=== PATIENT | female | born 1955 | race Caucasian/White ===

== ENCOUNTER 2017-10-13 12:18 | Emergency (ER) | payer MEDICAID, OTHER ==
[~2017-10-13] VITALS: Ht 167.6 cm; Wt 100.0 kg
[2017-10-13 13:37] VITALS: BP 138/86
[2017-10-13] MEDS ORDERED: KEN0.1O TP (14:49)
[2017-10-13] MEDS ORDERED: DOXY100C2 PO (14:49)
== END 2017-10-13 15:01 | disposition home or self-care (01) ==
LOC: ER 12:19
DX: R21 Rash and other nonspecific skin eruption (principal); Z88.5 Allergy status to narcotic agent
CPT/HCPCS: 99283